=== PATIENT | male | born 1995 | race Caucasian/White ===

== ENCOUNTER → 2022-12-11 | Outpatient (CLI) | payer OTHER ==
--- NOTE | 2022-12-11 08:46 | US ---
EXAMINATION TYPE: US abdomen limited DATE OF EXAM: 12/11/2022 COMPARISON: NONE CLINICAL INDICATION: Male, 27 years old with history of K46.9 ABD HERNIA; patient felt palpable in th e shower on right flank, no injury, no pain, no discoloration, soft to touch Assess for hernia at location of: Rt flank Soft tissue scan at area of palpable was hyperechoic lesion = 1.3 x 1.7 x 0.8cm, non vascular, probab le lipoma versus other etiology. IMPRESSION: Suspect small subcutaneous lipoma or other nonaggressive etiology. No hernia defect is s een. Real-time scanning was performed by the physiatrist utilizing Valsalva and additional dynamic maneuve rs to assess for hernia.
== END | disposition home or self-care (01) ==
LOC: RADUSWWP 08:14
PROVIDERS: ATTEND Family Medicine
DX: K46.9 Unspecified abdominal hernia without obstruction or gangrene (principal)
CPT/HCPCS: 76705

== ENCOUNTER 2023-07-05 21:34 | Emergency (ER) | payer OTHER ==
--- NOTE | 2023-07-05 21:41 | ED ---
General Adult HPI - General Source: patient, RN notes reviewed Mode of arrival: ambulatory Limitations: no limitations <Perri Jaramillo - Last Filed: 07/05/23 21:43> - General Source: RN notes reviewed, old records reviewed <Adalberto Dockery - Last Filed: 07/05/23 23:05> - General Stated complaint: Eye injury/swollen Time Seen by Provider: 07/05/23 21:39 - History of Present Illness Initial comments: 27 year old male presents to the emergency department for chief complaint of right eye swelling. Patient states that he hit himself in the eye with a [place] [employer] bar at work. He states that his eye seemed fine following this but he blew his nose and states that his right eye seems swollen. He denies any visual changes. Denies pain with eye movements. (Perri Jaramillo) Patient is a 27-year-old male who originally presents was evaluated as a quick note. His no significant past medical history. At approximately 6 PM this evening, he was working on his car inside the garage when he struck his eye with a crowbar. He has a small laceration in his eyebrow. Began experiencing some periorbital swelling on that side. Denies any blurry vision. Presents or further evaluation at this time. Denies loss of consciousness. Is not on blood thinners. Denies lightheadedness. States the edema seemed to have gotten worse when he blew his nose. Denies any other facial pain or pain with eye movements. Presents for further evaluation. (Adalberto Dockery) - Related Data Previous Rx's Medication Instructions Recorded Sodium Chloride [Saline Mist] 1 spray EA NOSTRIL BID #45 ml 07/05/23 Allergies Allergy/AdvReac Type Severity Reaction Status Date / Time Penicillins Allergy Rash/Hives Verified 07/05/23 21:48 Review of Systems ROS Other: All systems not noted in ROS Statement are negative. <Perri Jaramillo - Last Filed: 07/05/23 21:43> ROS Other: All systems not noted in ROS Statement are negative. <Adalberto Dockery - Last Filed: 07/05/23 23:05> ROS Statement: Those systems with pertinent positive or pertinent negative responses have been documented in the HPI. Review of Systems: CONST: Denies fever EYES: Denies blurry vision ENT: Denies nasal congestion C/V: Denies Chest pain RESP: Denies shortness of breath GI: Denies abdominal pain : Denies dysuria SKIN: Endorses right eyebrow laceration MSK: Denies joint pain. NEURO: Denies headache (Adalberto Dockery) General Exam <Perri Jaramillo - Last Filed: 07/05/23 21:43> <Adalberto Dockery - Last Filed: 07/05/23 23:05> - General Exam Comments Initial Comments: Visual Physical Exam Vital signs reviewed General: Well-appearing, nontoxic, no acute distress. Head: Normocephalic, atraumatic Eyes: PERRLA, EOMI ENT: Airway patent Chest: Nonlabored breathing Skin: No visual rash, normal skin tone Neuro: Alert and oriented 3 Musculoskeletal: No gross abnormalities (Perri Jaramillo) General: Appears in no acute distress. HEAD: Normal with no signs of head trauma. EYES: PERRLA, EOMI, conjunctiva normal, no discharge. Visual acuity 20/30 in both eyes when isolated. No proptosis. Pupils are 3 mm and equal bilaterally. When stained, no evidence of corneal abrasion or ulceration. No evidence of globe rupture. ENT: Hearing grossly intact, normal oropharynx. RESPIRATORY: Clear breath sounds bilaterally. C/V: Regular rate and rhythm. ABD: Abd is soft, nontender, nondistended EXT: Normal range of motion, no obvious deformity SKIN: Small, 1 cm laceration that is non-gaping within his right eyebrow. NEURO: Alert and oriented x 4. No obvious deficits. (Adalberto Dockery) Course Vital Signs 07/05/23 21:45 Temperature 97.9 F Pulse Rate 65 Respiratory 18 Rate Blood Pressure 165/87 O2 Sat by Pulse 97 Oximetry Medical Decision Making <Perri Jaramillo - Last Filed: 07/05/23 21:43> <Adalberto Dockery - Last Filed: 07/05/23 23:05> - Medical Decision Making Quick note preformed by Perri Jaramillo PA-C (Perri Jaramillo) Was pt. sent in by a medical professional or institution ([facility], [employer]IE[employer], urgent care, hospital, or penitentiary...) When possible be specific @ -No Did you speak to anyone other than the patient for history (EMS, parent, family, police, friend...)? What history was obtained from this source @ -No Did you review nursing and triage notes (agree or disagree)? Why? @ -I reviewed and agree with nursing and triage notes Were old charts reviewed (outside hosp., previous admission, EMS record, old EKG, old radiological studies, urgent care reports/EKG's, penitentiary records)? Report findings @ -No old charts were reviewed Differential Diagnosis (chest pain, altered mental status, abdominal pain women, abdominal pain men, vaginal bleeding, weakness, fever, dyspnea, syncope, headache, dizziness, GI bleed, back pain, seizure, CVA, palpatations, mental health, musculoskeletal)? @ -Corneal abrasion, corneal ulceration, globe rupture, periorbital edema, laceration. This list is not all-inclusive. EKG interpreted by me (3pts min.). @ -None done X-rays interpreted by me (1pt min.). @ -None done CT interpreted by me (1pt min.). @ -None done U/S interpreted by me (1pt. min.). @ -None done What testing was considered but not performed or refused? (CT, X-rays, U/S, labs)? Why? @ -None What meds were considered but not given or refused? Why? @ -None Did you discuss the management of the patient with other professionals (professionals i.e. , PA, AUTOMATIC CHIEF, lab, RT, psych nurse, adoption social worker, business lawyer, teacher, weapons officer, gearcase assembler)? Give summary @ -No Was smoking cessation discussed for >3mins.? @ -No Was critical care preformed (if so, how long)? @ -No Were there social determinants of health that impacted care today? How? (Homelessness, low income, unemployed, alcoholism, drug addiction, transportation, low edu. Level, literacy, decrease access to med. care, [facility], rehab)? @ -No Was there de-escalation of care discussed even if they declined (Discuss DNR or withdrawal of care, Hospice)? DNR status @ -No What co-morbidities impacted this encounter? (DM, HTN, Smoking, COPD, CAD, Cancer, CVA, ARF, Chemo, Hep., AIDS, mental health diagnosis, sleep apnea, morbid obesity)? @ -None Was patient admitted / discharged? Hospital course, mention meds given and route, prescriptions, significant lab abnormalities, going to OR and other pertinent info. @ -Based on the patient's presentation and physical exam, I am concerned for what appears to be periorbital edema secondary to superficial injury to the right eyebrow. There is some swelling around the site. No pain with eye movements. Eye exam is unremarkable including normal visual acuity and no evidence of corneal abrasion on staining. No other obvious injuries. Has isolated edema which will be treated with ice pack. I did offer to close his laceration however patient declines at this time. Tetanus is updated. Vital signs within acceptable limits. He'll be discharged home at this time with nasal precautions. Was given saline mist. Patient agreement this plan. I will provide the patient with a prescription for saline spray. I instructed the patient to follow up with their PCP in the next 1-3 days. I provided contact information for follow up with optho. I explained that the patient should return to the emergency department if they experience any worsening symptoms. Strict return precautions were discussed with the patient. The patient expressed understanding of these instructions. I answered all questions that the patient had. The patient was discharged home in good condition with their prescriptions and follow up information. Undiagnosed new problem with uncertain prognosis? @ -No Drug Therapy requiring intensive monitoring for toxicity (Heparin, Nitro, Insulin, Cardizem)? @ -No Were any procedures done? @ -No Diagnosis/symptom? @ -Right periorbital edema, laceration Acute, or Chronic, or Acute on Chronic? @ -Acute Uncomplicated (without systemic symptoms) or Complicated (systemic symptoms)? @ -Uncomplicated Side effects of treatment? @ -No Exacerbation, Progression, or Severe Exacerbation? @ -No Poses a threat to life or bodily function? How? (Chest pain, USA, PA, pneumonia, PE, COPD, DKA, ARF, appy, cholecystitis, CVA, Diverticulitis, Homicidal, Suicidal, threat to staff... and all critical care pts) @ -No (Adalberto Dockery) Disposition <Perri Jaramillo - Last Filed: 07/05/23 21:43> Is patient prescribed a controlled substance at d/c from ED?: No Time of Disposition: 22:55 <Adalberto Dockery - Last Filed: 07/05/23 23:05> Clinical Impression: Periorbital edema of right eye, Laceration Disposition: HOME SELF-CARE Condition: Good Additional Instructions: Ice the eye, no blowing nose, use saline mist spray as needed. Follow up with opthomology as needed. Return if worsening symptoms. Prescriptions: Sodium Chloride [Saline Mist] 1 spray EA NOSTRIL BID #45 ml Referrals: Jane Mazariegos FNPBC [REFERRING] - 1-2 days Neil Lofton MD [STAFF PHYSICIAN] - 1-2 days
[2023-07-05] MEDS ORDERED: FLUORESCEIN STRIPS 1 MG STRIP RIGHT EYE ONE (21:43)
[2023-07-05] MEDS ORDERED: DIPH,PERTUS(ACELL)TETVAC-LF 0.5 ML VIAL IM ONE (21:43)
[2023-07-05] MEDS ORDERED: PROPARACAINE 0.5% OPHTH DROPS 15 ML BTL RIGHT EYE STA (21:43)
[2023-07-05 21:54] VITALS: BP 165/87; PULSE 65; RESP 18; TEMP 97.9
== END 2023-07-05 23:06 | disposition home or self-care (01) ==
LOC: EC 21:34
DX: S01.111A Laceration without foreign body of right eyelid and periocular area, initial encounter (principal); Z23 Encounter for immunization; W22.8XXA Striking against or struck by other objects, initial encounter; Z88.0 Allergy status to penicillin
CPT/HCPCS: 12011; 90471; 90715; 99283